=== PATIENT | male | born 1990 | race Caucasian/White ===

== ENCOUNTER → 2017-06-04 | Outpatient (CLI) | payer BC, OTHER ==
[2017-06-04 12:48] LABS: DAYS OF ABSTINENCE 4; METHOD OF COLLECTION MASTURBATION; SEMEN TIME OF COLLECTION 949; TYPE OF SPECIMEN CONTAINER STERILE
[2017-06-04 12:49] LABS: SEMEN COLOR GRAY OR GRAY-WHITE (GRY/GRYWHTE)
[2017-06-04 12:50] LABS: SEMEN VOLUME 3.5 ML (>1.5)
[2017-06-04 12:55] LABS: SPERM VIABILITY STAIN NOT INDICATED % (>58%)
== END | disposition home or self-care (01) ==
LOC: C.LAB 10:20
PROVIDERS: ATTEND Obstetrics & Gynecology
DX: N46.9 Male infertility, unspecified (principal)